=== PATIENT | male | born 1955 | race Caucasian/White ===

== ENCOUNTER 2019-01-15 05:47 | Inpatient (IN) | payer MEDICARE ==
[~2019-01-15] VITALS: Ht 185.4 cm; Wt 113.4 kg
[2019-01-15] VITALS (10 sets, daily range): BP systolic 102–123; BP diastolic 63–80
[2019-01-15] MEDS ORDERED: BACITRACIN 50,000 UNIT in IV NORMAL SALINE 1000ML BAG 1,000 ML IRR ONE (06:00)
[2019-01-15] MEDS ORDERED: fentaNYL PF VIAL 100 MCG/2 ML VIAL IV PRN ×2 (07:00→12:15)
[2019-01-15] MEDS ORDERED: ONDANSETRON PF 4 MG/2 ML VIAL. IV PRN ×2 (07:00→12:15)
[2019-01-15] MEDS ORDERED: PROCHLORPERAZINE 10 MG/2 ML VIAL. IV PRN (07:00)
[2019-01-15] MEDS ORDERED: IV RINGERS,LACTATED 1000ML 1,000 ML IV SCH (07:00)
[2019-01-15] MEDS ORDERED: HYDROmorphone 2 MG/ML VIAL IV PRN (07:00)
[2019-01-15] MEDS ORDERED: KETOROLAC 60 MG/2 ML VIAL. ONE (07:08)
[2019-01-15] MEDS ORDERED: GELATIN SPONGE SIZE 100. ONE (07:08)
[2019-01-15] MEDS ORDERED: THROMBIN TOPICAL 20,000 UNIT SPRAY.SYRN KIT TP ONE (07:09)
[2019-01-15] MEDS ORDERED: FURO-69 PO (07:18)
[2019-01-15] MEDS ORDERED: LOSA100T14 PO (07:18)
[2019-01-15] MEDS ORDERED: LACT1CAP8 PO (07:18)
[2019-01-15] MEDS ORDERED: POLY17PO29 PO (07:18)
[2019-01-15] MEDS ORDERED: TAMS0.4C97 PO (07:18)
[2019-01-15] MEDS ORDERED: GABA-585 PO (07:18)
[2019-01-15] MEDS ORDERED: PANT20TA2 PO (07:18)
[2019-01-15] MEDS ORDERED: NITR0.4T22 SL (07:18)
[2019-01-15] MEDS ORDERED: ASPI81TA50 PO (07:18)
[2019-01-15] MEDS ORDERED: LEFL10TA13 PO (07:18)
[2019-01-15] MEDS ORDERED: HYDR-2765 PO (07:18)
[2019-01-15] MEDS ORDERED: CALC625T PO (07:18)
[2019-01-15] MEDS ORDERED: SUMA100T3 PO (07:18)
[2019-01-15] MEDS ORDERED: MORP30TA83 PO (07:18)
[2019-01-15] MEDS ORDERED: LEVO88TA2 PO (07:18)
[2019-01-15] MEDS ORDERED: DIAZEPAM10 MG PO (07:18)
[2019-01-15] MEDS ORDERED: TRAZ-118 PO (07:18)
[2019-01-15] MEDS ORDERED: METO-269 PO (07:18)
[2019-01-15] MEDS ORDERED: PRED-220 PO (07:18)
[2019-01-15] MEDS ORDERED: IPRA3AMP29 NEB (07:18)
[2019-01-15] MEDS ORDERED: BUPIVACAINE-EPI 0.5%-1:200000 MPF 30 ML VIAL. INJ ONE (07:30)
[2019-01-15] MEDS ORDERED: IPRATRPIUM/ALBUTEROL 0.5/2.5MG 3 ML NEBU. NEB ONE (08:00)
[2019-01-15] MEDS ORDERED: MIDAZOLAM HCL/PF 2 MG/2 ML VIAL. ONE (08:14)
[2019-01-15] MEDS ORDERED: REMIFENTANIL 2 MG VIAL. IV ONE ×3 (08:14→13:29)
[2019-01-15] MEDS ORDERED: ROCURONIUM 50 MG/5 ML VIAL. ONE (08:14)
[2019-01-15] MEDS ORDERED: PROPOFOL 20 ML IV ONE ×3 (08:15→14:14)
[2019-01-15] MEDS ORDERED: PHENYLEPHRINE 10 MG/ML VIAL. ONE ×3 (08:15→13:42)
[2019-01-15] MEDS ORDERED: LIDOCAINE 2% PF 5 ML VIAL. ONE (08:15)
[2019-01-15] MEDS ORDERED: ONDANSETRON PF 4 MG/2 ML VIAL. ONE (08:15)
[2019-01-15] MEDS ORDERED: DEXAMETHASONE SOD PHOS 20 MG/5 ML VIAL. ONE (08:15)
[2019-01-15] MEDS ORDERED: KETOROLAC 30 MG/ML VIAL. ONE (08:15)
[2019-01-15] MEDS ORDERED: DESFLURANE > 120 MINUTES IH ONE ×2 (08:15→15:22)
[2019-01-15] MEDS ORDERED: PROPOFOL 50 ML IV ONE ×3 (08:15→11:32)
[2019-01-15] MEDS ORDERED: GLYCOPYRROLATE 1 MG/5 ML VIAL. ONE (08:19)
[2019-01-15] MEDS ORDERED: HYDROCORTISONE SOD SUCC/PF 100 MG/2 ML VIAL. ONE (08:29)
--- NOTE | 2019-01-15 08:33 | RAD ---
EXAM: CT lumbar spine without IV contrast CLINICAL HISTORY:LUMBAR STENOSIS, HERNIATED DISC, PSEUDOARTHROSIS Low back pain. COMPARISON: None available. TECHNIQUE: Helical CT was performed through the lumbar spine. Axial, coronal and sagittal reformatted images were generated. PQRS compliance statement - One or more of the following individualized dose reduction techniques were utilized for this study: 1. Automated exposure control 2. Adjustment of the mA and/or kV according to patient size 3. Use of iterative reconstruction technique FINDINGS: Postoperative changes of L3-4 laminectomy with L3-L5 posterior lateral fusion changes are seen with paired pedicle screws. Of note, the bilateral L3 and L4 pedicle screws appear to extend partially beyond the lateral margin of the respective pedicles. In addition partial resection of the inferior L2 spinous process is seen. Otherwise, no definite hardware complication. No evidence for acute fracture. Leftward curvature of the lumbar spine, apex L2-3. Trace anterolisthesis of L4 on L5. There is severe L2-3 disc height loss. Intervertebral disc heights are otherwise grossly preserved. T12-L1: No significant central canal stenosis or neural foraminal narrowing. L1-L2: No significant central canal stenosis or neural foraminal narrowing. L2-L3: Large calcified posterior disc osteophyte complex is seen extending inferiorly approximately 2 cm caudal along the posterior L3 vertebral body. In addition there is ligamentum flavum hypertrophy, facet degenerative changes resulting in moderate to severe central canal stenosis with thecal sac measuring 7-8 mm in AP dimension, with lateral recess narrowing and likely severe bilateral neural foraminal narrowing (right greater than left). L3-L4: Generalized disc bulge with facet degenerative changes results in moderate bilateral neural foraminal narrowing and mild bilateral lateral recess narrowing. L4-L5: Generalized disc bulge, trace anterolisthesis of L4 on L5, with laminectomy change and facet degenerative changes results in no significant central canal stenosis, although there is mild bilateral neural foraminal narrowing. L5-S1: Shallow right paracentral-foraminal disc protrusion with ligamentum flavum hypertrophy and calcification results in mild central canal stenosis, mild right neural foraminal narrowing and moderate right lateral recess stenosis. IMPRESSION: 1. Multilevel degenerative changes as described in detail above, most prominent at L2-3 with calcified disc extrusion extending approximately 2 cm caudal along the posterior wall L3 vertebral body with resultant neural foraminal and lateral recess narrowing. 2. L3-L5 posterior spinal fusion hardware as described in detail above. Trace anterolisthesis of L4 on L5. Electronically signed by: Jorge Parish MD (01/15/2019 8:31 AM) [facility]
--- NOTE | 2019-01-15 08:53 | HP ---
ADMIT DATE: 01/15/[address] Leong. DATE OF SURGERY: 01/15/2019. HISTORY OF PRESENT ILLNESS: The patient is a pleasant 63-year-old who has difficulty with low back pain and bilateral hip and thigh and leg pain. This problem has been present for years, but has been significant since late 2018. He rates his pain as an 8/10. He says that the left leg is about 70% of the problem and right leg is about 30%. He is unable to sleep at night. Walking and standing increases discomfort. Lying in certain positions helps him. He is taking [place], Valium and morphine to help with the problem. He has been to physical therapy 3 times per week without significant benefit. Epidural steroid injections have been done, which gave him short-term improvement. PAST MEDICAL HISTORY: Arthritis, asthma, gout, chest pain, pacemaker, headaches, rheumatoid arthritis, shingles, thyroid disease, sepsis, wound infection. PAST SURGICAL HISTORY: Sinus surgery, elbow surgery, cervical surgery, lumbar surgery, wrist surgery, abdominal surgery. FAMILY HISTORY: Bleeding problems, cancer, diabetes, heart disease, hypertension, [place], headache, spine problems. SOCIAL HISTORY: Retired. . Does not smoke. ALLERGIES: TO LATEX. CURRENT MEDICATIONS: [place], Valium, morphine, Protonix, Flomax, diazepam, trazodone, prednisone, Synthroid, metoprolol, albuterol, losartan, nitroglycerin, Imitrex, hydrochlorothiazide, gabapentin, aspirin, MiraLax, FiberCon, gemfibrozil. REVIEW OF SYSTEMS: A 12-point review of systems was obtained and is noncontributory except for that mentioned above. PHYSICAL EXAMINATION: NEUROSURGERY EXAMINATION: GENERAL APPEARANCE: Alert, pleasant, no acute distress. HEAD: Normocephalic and atraumatic. SKIN: Warm and dry. MUSCULOSKELETAL: Lumbar paraspinal muscle bulk is normal, restricted range of motion of the lumbar spine, ioll-nf-[id number] tenderness of the lower lumbar spine with palpation, normal range of motion of the lower extremities bilaterally. EXTREMITIES: No clubbing, cyanosis or edema. NEUROLOGIC: Alert and oriented x 3, normal recent and remote memory, strength 5/5 in bilateral lower extremities, sensory was intact to light touch in bilateral lower extremities, reflexes are trace and symmetric in lower extremities bilaterally except for subjective decrease in light touch involving his left anterior thigh and leg. Negative straight leg raising bilaterally. He uses a roller walker for help with ambulation. IMAGING: Reviewed. I reviewed a lumbar MRI scan and CT scan. He has an instrumented fusion, which extends from L3 to L5. On the CT portion, it looks as though there may be a nonunion at L3-L4. At L2-L3, there is a large central disk extrusion/herniation, which is associated with severe lumbar spinal stenosis. ASSESSMENT: 1. Intervertebral disk disorders with radiculopathy, lumbar region. 2. Spinal stenosis, lumbar region with neurogenic claudication. 3. Pseudoarthrosis ____ fusion or arthrodesis. 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 I would recommend surgery with removal of hardware of L3-L5, augmentation of his fusion, L3-L4 and a laminectomy and diskectomy at L2-L3. I would replace his hardware with L3-5. I do think that this type of approach would offer him some relief. I discussed with him the surgery and the risks involved as well as expected postoperative course. He understands. He would like to go ahead. We will make the arrangements. ROBERTA LEONG MD DR: BRANDI/amelia JOB#: [id number] / [id number]
[2019-01-15] MEDS ORDERED: SCOPOLAMINE 1.5MG PATCH. TD SCH (09:00)
[2019-01-15] MEDS ORDERED: fentaNYL PF VIAL 100 MCG/2 ML VIAL ONE ×2 (11:23→16:28)
[2019-01-15] MEDS ORDERED: SUMAtriptan SUCCINATE 100 MG TABLET PO PRN (12:00)
[2019-01-15] MEDS ORDERED: 0.9 % SODIUM CHLORIDE 10 ML DISP.SYRIN. IV PRN (12:15)
[2019-01-15] MEDS ORDERED: NALOXONE 0.4 MG/ML VIAL. IV PRN ×2 (12:15)
[2019-01-15] MEDS ORDERED: MAG HYDROX/ALUMINUM HYD/SIMETH 30 ML ORAL.SUSP PO PRN (12:15)
[2019-01-15] MEDS ORDERED: MAGNESIUM HYDROXIDE 2,400 MG/30 ML ORAL.SUSP. PO PRN (12:15)
[2019-01-15] MEDS ORDERED: HYDROcodone/APAP 10/325 1 TAB TABLET PO PRN (12:15)
[2019-01-15] MEDS ORDERED: CALCIUM CARBONATE 500 MG TAB.CHEW PO PRN (12:15)
[2019-01-15] MEDS ORDERED: diphenhydrAMINE HCL 25 MG CAPSULE PO PRN (12:15)
[2019-01-15] MEDS ORDERED: ACETAMINOPHEN 325 MG TABLET. PO PRN (12:15)
[2019-01-15] MEDS ORDERED: NEOSTIGMINE METHYLSULFATE 5 MG/5 ML SYRINGE. ONE (13:10)
[2019-01-15] MEDS ORDERED: ceFAZolin SODIUM 1 GM VIAL ONE ×2 (13:22)
[2019-01-15] MEDS ORDERED: 0.9 % SODIUM CHLORIDE 20 ML VIAL. IJ ONE ×2 (13:23)
[2019-01-15] MEDS ORDERED: IPRATRPIUM/ALBUTEROL 0.5/2.5MG 3 ML NEBU. NEB SCH (16:00)
[2019-01-15] MEDS: fentaNYL PF VIAL 100 MCG/2 ML VIAL IV PRN ×4 (16:17→16:36)
[2019-01-15] MEDS: MORPHINE SULFATE 2 MG/ML VIAL. IV PRN ×2 (16:18→16:27)
[2019-01-15] MEDS: POTASSIUM CL 20MEQ D5-0.45NACL 1,000 ML IV SCH (17:27)
[2019-01-15] MEDS: MORPHINE ER 30 MG TABLET.ER PO SCH ×2 (17:27→21:23)
[2019-01-15] MEDS: HYDROcodone/APAP 10/325 1 TAB TABLET PO PRN (19:09)
[2019-01-15] MEDS: ceFAZolin SODIUM IV Push 1 GM VIAL. IVP SCH (21:16)
[2019-01-15] MEDS: traZODone 50 MG TABLET. PO SCH (21:17)
[2019-01-15] MEDS: DOCUSATE SODIUM 100 MG CAPSULE. PO SCH (21:17)
[2019-01-15] MEDS: diazePAM 5 MG TABLET PO SCH (21:23)
[2019-01-16] VITALS (8 sets, daily range): BP systolic 86–144; BP diastolic 40–86
[2019-01-16] MEDS: POTASSIUM CL 20MEQ D5-0.45NACL 1,000 ML IV SCH ×2 (01:22→14:42)
[2019-01-16] MEDS: ceFAZolin SODIUM IV Push 1 GM VIAL. IVP SCH ×2 (05:06→13:27)
[2019-01-16] MEDS: LEVOTHYROXINE 88 MCG TABLET PO SCH (06:32)
[2019-01-16] MEDS: PANTOPRAZOLE 40 MG TABLET.DR. PO SCH (06:58)
--- NOTE | 2019-01-16 08:00 | NUR ---
ready to sit up. transferred from bed to chair with help of 2. ambulates to the bathroom and voids a large amount; some hesitancy. dressing to back incision is saturated. cleansed with chlor prep Telfa then abd x2 applied. sits up in chair with ice to his back. continues to have numbness in his left leg.
[2019-01-16] MEDS: POLYETHYLENE GLYCOL 3350 17 GM PACKET. PO SCH (08:27)
[2019-01-16] MEDS: METHOCARBAMOL 750 MG TABLET PO PRN ×2 (08:28→15:07)
[2019-01-16] MEDS: CALCIUM POLYCARBOPHIL 625 MG TABLET PO SCH (08:28)
[2019-01-16] MEDS: TAMSULOSIN 0.4 MG CAP.ER.24H. PO SCH (08:28)
[2019-01-16] MEDS: MORPHINE ER 30 MG TABLET.ER PO SCH ×3 (08:28→21:02)
[2019-01-16] MEDS: predniSONE 10 MG TABLET PO SCH (08:28)
[2019-01-16] MEDS: DOCUSATE SODIUM 100 MG CAPSULE. PO SCH ×2 (08:29→21:01)
[2019-01-16] MEDS: HYDROcodone/APAP 10/325 1 TAB TABLET PO PRN ×2 (08:29→12:20)
[2019-01-16] MEDS: ASPIRIN ENTERIC COATED 81 MG TABLET.DR. PO SCH (08:29)
[2019-01-16] MEDS: FUROSEMIDE 20 MG TABLET PO SCH (08:29)
[2019-01-16] MEDS: LACTOBACILLUS RHAMNOSUS GG 1 CAPSULE. PO SCH (08:29)
[2019-01-16] MEDS: LEFLUNOMIDE 10 MG TABLET. PO SCH (09:00)
--- NOTE | 2019-01-16 10:55 | PDOC ---
PROGRESS NOTES Subjective Subjective POD #1 ambulated with PT back/ incisional pain controlled with medication Objective Objective Vital Signs Date Time Temp Pulse Resp B/P (MAP) Pulse Ox O2 Delivery O2 Flow Rate FiO2 01/16/19 09:04 75 20 86/40 (55) Room Air 01/16/19 06:26 98.0 96 2.0 98.0 Intake and Output 01/16/19 06:59 Intake Total 1750 ml Output Total 1000 ml Balance 750 ml Intake Oral 450 ml IV Total 1300 ml Output Urine Total 850 ml Estimated Blood Loss 150 ml # Voids 1 Physical Exam General: Alert, Oriented X3, Cooperative MUSCULOSKELETAL: Other (KENNY) Neuro: Normal speech Skin: Other (dressing intact, some bloody drainage) Plan Plan of Care encouraged increased activity as tolerated PT brace likely dc tomorrow Comment Review of Relevant I have reviewed the following items asia (where applicable) has been applied. Medications Current Medications Ondansetron HCl (Zofran) 4 mg PRN Q6HRS PRN IV NAUSEA/VOMITING; Start 01/15/19 at 07:00; Stop 01/15/19 at 19:00; Status DC Fentanyl Citrate (Fentanyl 2ml Vial) 25 mcg PRN Q5MIN PRN IV MILD PAIN 1-3; Start 01/15/19 at 07:00; Stop 01/15/19 at 19:00; Status DC Fentanyl Citrate (Fentanyl 2ml Vial) 50 mcg PRN Q5MIN PRN IV MODERATE TO SEVERE PAIN Last administered on 01/15/19at 16:36; Start 01/15/19 at 07:00; Stop 01/15/19 at 19:00; Status DC Morphine Sulfate (Morphine Sulfate) 1 mg PRN Q10MIN PRN IV SEVERE PAIN 7-10 Last administered on 01/15/19at 16:30; Start 01/15/19 at 07:00; Stop 01/15/19 at 19:00; Status DC Ringer's Solution 1,000 ml @ 30 mls/hr Q24H IV Last administered on 01/15/19at 07:05; Start 01/15/19 at 07:00; Stop 01/15/19 at 18:59; Status DC Hydromorphone HCl (Dilaudid) 0.5 mg PRN Q10MIN PRN IV SEV PAIN, Second choice; Start 01/15/19 at 07:00; Stop 01/15/19 at 19:00; Status DC Prochlorperazine Edisylate (Compazine) 5 mg PACU PRN PRN IV NAUSEA, MRX1; Start 01/15/19 at 07:00; Stop 01/15/19 at 19:00; Status DC Bacitracin 24354 unit/Sodium Chloride 1,000 ml @ 1,000 mls/hr 1X ONCE IRR Last administered on 01/15/19at 11:15; Start 01/15/19 at 06:00; Stop 01/15/19 at 06:59; Status DC Cefazolin Sodium/ Dextrose 50 ml @ 100 mls/hr 1X PREOP PRN IV PRIOR TO PROCEDURE Last administered on 01/15/19at 14:21; Start 01/15/19 at 06:00; Stop 01/15/19 at 18:00; Status DC Scopolamine (Transderm-Scop) 1 patch Q3DAYS TD Last administered on 01/15/19at 07:31; Start 01/15/19 at 09:00 Gelatin (Gelfoam Size 100) 1 each STK-MED ONCE .ROUTE Last administered on 01/15/19at 11:15; Start 01/15/19 at 07:08; Stop 01/15/19 at 07:09; Status DC Ketorolac Tromethamine (Toradol Im) 60 mg STK-MED ONCE .ROUTE Last administered on 01/15/19 11:15; Start 01/15/19 at 07:08; Stop 01/15/19 at 07:09; Status DC Thrombin 20,000 unit STK-MED ONCE TP Last administered on 01/15/19at 11:15; Start 01/15/19 at 07:09; Stop 01/15/19 at 07:09; Status DC Bupivacaine HCl/ Epinephrine Bitart (Sensorcain-Epi 0.5%-1:047010 Mpf) 30 ml 1X ONCE INJ Last administered on 01/15/19at 15:30; Start 01/15/19 at 07:30; Stop 01/15/19 at 07:31; Status DC Albuterol/ Ipratropium (Duoneb) 3 ml 1X ONCE NEB Last administered on 01/15/19at 08:00; Start 01/15/19 at 08:00; Stop 01/15/19 at 08:19; Status DC Rocuronium [place] (Zemuron) 50 mg STK-MED ONCE .ROUTE ; Start 01/15/19 at 08:14; Stop 01/15/19 at 08:14; Status DC Midazolam HCl (Versed) 2 mg STK-MED ONCE .ROUTE ; Start 01/15/19 at 08:14; Stop 01/15/19 at 08:14; Status DC Remifentanil HCl (Ultiva) 2 mg STK-MED ONCE IV ; Start 01/15/19 at 08:14; Stop 01/15/19 at 08:15; Status DC Desflurane (Suprane) 90 ml STK-MED ONCE IH ; Start 01/15/19 at 08:15; Stop 01/15/19 at 08:15; Status DC Propofol 20 ml @ As Directed STK-MED ONCE IV ; Start 01/15/19 at 08:15; Stop 01/15/19 at 08:15; Status DC Propofol 50 ml @ As Directed STK-MED ONCE IV ; Start 01/15/19 at 08:15; Stop 01/15/19 at 08:15; Status DC Lidocaine HCl (Lidocaine Pf 2% Vial) 5 ml STK-MED ONCE .ROUTE ; Start 01/15/19 at 08:15; Stop 01/15/19 at 08:15; Status DC Ondansetron HCl (Zofran) 4 mg STK-MED ONCE .ROUTE ; Start 01/15/19 at 08:15; Stop 01/15/19 at 08:16; Status DC Ketorolac Tromethamine (Toradol 30mg Vial) 30 mg STK-MED ONCE .ROUTE ; Start 01/15/19 at 08:15; Stop 01/15/19 at 08:16; Status DC Phenylephrine HCl (Bj-Synephrine Inj) 10 mg STK-MED ONCE .ROUTE ; Start 01/15/19 at 08:15; Stop 01/15/19 at 08:16; Status DC Dexamethasone Sodium Phosphate (Decadron) 20 mg STK-MED ONCE .ROUTE ; Start 01/15/19 at 08:15; Stop 01/15/19 at 08:16; Status DC Glycopyrrolate (Robinul) 1 mg STK-MED ONCE .ROUTE ; Start 01/15/19 at 08:19; Stop 01/15/19 at 08:19; Status DC Hydrocortisone Sodium Succinate (Solu-CORTEF) 100 mg STK-MED ONCE .ROUTE ; Start 01/15/19 at 08:29; Stop 01/15/19 at 08:30; Status DC Propofol 50 ml @ As Directed STK-MED ONCE IV ; Start 01/15/19 at 10:17; Stop 01/15/19 at 10:17; Status DC Phenylephrine HCl (Bj-Synephrine Inj) 10 mg STK-MED ONCE .ROUTE ; Start 01/15/19 at 10:57; Stop 01/15/19 at 10:57; Status DC Remifentanil HCl (Ultiva) 2 mg STK-MED ONCE IV ; Start 01/15/19 at 11:10; Stop 01/15/19 at 11:11; Status DC Fentanyl Citrate (Fentanyl 2ml Vial) 100 mcg STK-MED ONCE .ROUTE ; Start 01/15/19 at 11:23; Stop 01/15/19 at 11:23; Status DC Propofol 50 ml @ As Directed STK-MED ONCE IV ; Start 01/15/19 at 11:32; Stop 01/15/19 at 11:32; Status DC Aspirin (Ecotrin) 81 mg DAILY PO Last administered on 01/16/19at 08:33; Start 01/16/19 at 09:00 Calcium Polycarbophil (Fibercon) 625 mg DAILY PO Last administered on 01/16/19at 08:33; Start 01/16/19 at 09:00 Furosemide (Lasix) 20 mg DAILY PO Last administered on 01/16/19at 08:33; Start 01/16/19 at 09:00 Albuterol/ Ipratropium (Duoneb) 3 ml RTQID NEB ; Start 01/15/19 at 16:00 Leflunomide (Arava) 20 mg DAILY PO ; Start 01/16/19 at 09:00 Levothyroxine Sodium (Synthroid) 88 mcg DAILY06 PO Last administered on 01/16/19at 06:32; Start 01/16/19 at 06:00 Morphine Sulfate (Ms Contin) 30 mg TID PO Last administered on 01/16/19at 08:33; Start 01/15/19 at 14:00 Polyethylene Glycol (miraLAX PACKET) 17 gm DAILY PO Last administered on 01/16/19at 08:33; Start 01/16/19 at 09:00 Prednisone (Prednisone) 10 mg DAILY PO Last administered on 01/16/19at 08:33; Start 01/16/19 at 09:00 Sumatriptan Succinate (Imitrex) 150 mg PRN 1X PRN PO MIGRAINE HEADACHE Last administered on 01/16/19at 10:02; Start 01/15/19 at 12:00 Tamsulosin HCl (Flomax) 0.4 mg DAILY PO Last administered on 01/16/19at 08:33; Start 01/16/19 at 09:00 Trazodone HCl (Desyrel) 75 mg HS PO Last administered on 01/15/19at 21:19; Start 01/15/19 at 21:00 Diazepam (Valium) 10 mg QHS PO Last administered on 01/15/19at 21:24; Start 01/15/19 at 21:00 Lactobacillus Rhamnosus (Culturelle) 1 cap DAILY PO Last administered on 01/16/19at 08:33; Start 01/16/19 at 09:00 Losartan Potassium (Cozaar) 100 mg DAILY PO ; Start 01/16/19 at 09:00 Metoprolol Succinate (Toprol Xl) 50 mg DAILY PO ; Start 01/16/19 at 09:00 Pantoprazole Sodium (Protonix) 40 mg DAILYAC PO Last administered on 01/16/19at 06:59; Start 01/16/19 at 07:30 Fentanyl Citrate (Fentanyl 2ml Vial) 50 mcg PRN Q2HR PRN IV SEVERE PAIN; Start 01/15/19 at 12:15 Acetaminophen (Tylenol) 650 mg PRN Q6HRS PRN PO MILD PAIN / TEMP; Start 01/15/19 at 12:15 Al Hydroxide/Mg Hydroxide (Mylanta Plus Xs) 30 ml PRN Q3HRS PRN PO HEARTBURN / GAS; Start 01/15/19 at 12:15 Calcium Carbonate/ Glycine (Tums) 500 mg PRN Q3HRS PRN PO INDIGESTION; Start 01/15/19 at 12:15 Diphenhydramine HCl (Benadryl) 25 mg PRN Q6HRS PRN PO ITCHING; Start 01/15/19 at 12:15 Naloxone HCl (Narcan) 0.1 mg PRN Q2MIN PRN IV ADMIN; Start 01/15/19 at 12:15 Sodium Chloride (Normal Saline Flush) 3 ml QSHIFT PRN IV AFTER MEDS AND BLOOD DRAWS; Start 01/15/19 at 12:15 Potassium Chloride/Dextrose/ Sod Cl 1,000 ml @ 75 mls/hr [id number] IV Last administered on 01/15/19at 17:28; Start 01/15/19 at 12:02 Naloxone HCl (Narcan) 0.4 mg PRN Q2MIN PRN IV SEE INSTRUCTIONS; Start 01/15/19 at 12:15 Methocarbamol (Robaxin) 750 mg PRN TID PRN PO MUSCLE SPASMS Last administered on 01/16/19at 08:33; Start 01/15/19 at 12:15 Docusate Sodium (Colace) 100 mg BID PO Last administered on 01/16/19at 08:33; Start 01/15/19 at 21:00 Magnesium Hydroxide (Milk Of Magnesia) 2,400 mg PRN Q12HR PRN PO CONSTIPATION; Start 01/15/19 at 12:15 Ondansetron HCl (Zofran) 4 mg PRN Q6HRS PRN IV NAUESA, 1ST CHOICE; Start 01/15/19 at 12:15 Cefazolin Sodium (Ancef) 1 gm Q8H IVP Last administered on 01/16/19at 05:07; Start 01/15/19 at 21:00; Stop 01/16/19 at 13:01 Acetaminophen/ Hydrocodone Bitart (Lortab 10/325) 1 tab PRN Q6HRS PRN PO MODERATE PAIN Last administered on 01/16/19at 08:33; Start 01/15/19 at 12:15 Acetaminophen/ Hydrocodone Bitart (Lortab 10/325) 2 tab PRN Q6HRS PRN PO SEVERE PAIN; Start 01/15/19 at 12:15 Neostigmine Methylsulfate (Neostigmine Methylsulfate) 5 mg STK-MED ONCE .ROUTE ; Start 01/15/19 at 13:10; Stop 01/15/19 at 13:10; Status DC Cefazolin Sodium (Ancef) 1 gm STK-MED ONCE .ROUTE ; Start 01/15/19 at 13:22; Stop 01/15/19 at 13:23; Status DC Cefazolin Sodium (Ancef) 1 gm STK-MED ONCE .ROUTE ; Start 01/15/19 at 13:22; Stop 01/15/19 at 13:23; Status DC Sodium Chloride (SODIUM CHLORIDE 20ml) 20 ml STK-MED ONCE IJ ; Start 01/15/19 at 13:23; Stop 01/15/19 at 13:23; Status DC Sodium Chloride (SODIUM CHLORIDE 20ml) 20 ml STK-MED ONCE IJ ; Start 01/15/19 at 13:23; Stop 01/15/19 at 13:23; Status DC Remifentanil HCl (Ultiva) 2 mg STK-MED ONCE IV ; Start 01/15/19 at 13:29; Stop 01/15/19 at 13:29; Status DC Phenylephrine HCl (Bj-Synephrine Inj) 10 mg STK-MED ONCE .ROUTE ; Start 01/15/19 at 13:42; Stop 01/15/19 at 13:42; Status DC Propofol 20 ml @ As Directed STK-MED ONCE IV ; Start 01/15/19 at 14:14; Stop 01/15/19 at 14:14; Status DC Propofol 20 ml @ As Directed STK-MED ONCE IV ; Start 01/15/19 at 14:14; Stop 01/15/19 at 14:15; Status DC Desflurane (Suprane) 90 ml STK-MED ONCE IH ; Start 01/15/19 at 15:22; Stop 01/15/19 at 15:22; Status DC Fentanyl Citrate (Fentanyl 2ml Vial) 100 mcg STK-MED ONCE .ROUTE ; Start 01/15/19 at 16:28; Stop 01/15/19 at 16:28; Status DC Guaifenesin (MUCINEX ER with DM) 1 tab BID PO ; Start 01/16/19 at 21:00 Active Scripts Active Reported Ms Contin (Morphine Sulfate) 30 Mg Tablet.er 1 Tab PO TID Probiotic (Lactobacillus Combo No.11) 1 Each Cap.sprink 1 Each PO DAILY Fibercon (Calcium Polycarbophil) 625 Mg Tablet 625 Mg PO DAILY Miralax (Polyethylene Glycol 3350) 17 Gm Powd.pack 1 Packet PO DAILY Aspir-Low (Aspirin) 81 Mg Tablet.dr 1 Tab PO DAILY Hydrocodone-Apap 7.5-325 (Hydrocodone Bit/Acetaminophen) 1 Tab Tablet 1 Tab PO PRN Q6HRS PRN Lasix (Furosemide) 20 Mg Tablet 1 Tab PO DAILY Imitrex (Sumatriptan Succinate) 100 Mg Tablet 150 Mg PO ONCE PRN NITROGLYCERIN SubLingual (Nitroglycerin) 0.4 Mg Tab.subl 1 Tab SL UD Losartan Potassium 100 Mg Tablet 100 Mg PO DAILY Leflunomide 20 Mg Tablet 20 Mg PO DAILY Duoneb 0.5-3(2.5) Mg/3 Ml (Albuterol/Ipratropium) 3 Ml Ampul.neb 3 Ml NEB QID Toprol Xl (Metoprolol Succinate) 50 Mg Tab.er.24h 50 Mg PO DAILY Synthroid (Levothyroxine Sodium) 88 Mcg Tablet 1 Tab PO DAILY Prednisone (Prednisone) 10 Mg Tablet 10 Mg PO DAILY Trazodone Hcl 50 Mg Tablet 75 Mg PO HS Diazepam 10 Mg Tablet 10 Mg PO HS Flomax (Tamsulosin Hcl) 0.4 Mg Cap.er.24h 1 Cap PO DAILY Protonix (Pantoprazole Sodium) 20 Mg Tablet.dr 1 Tab PO DAILY Vitals/I & O Vital Sign - Last 24 Hours 01/15/19 01/15/19 01/15/19 01/15/19 15:58 15:58 16:13 16:18 Temp 99.1 99.1 Pulse 80 78 Resp 17 15 15 B/P (MAP) 113/63 108/69 Pulse Ox 98 93 99 O2 Delivery Mask Simple Mask Room Air Simple Mask O2 Flow Rate 10 10 10.0 01/15/19 01/15/19 01/15/19 01/15/19 16:18 16:23 16:25 16:30 Pulse 82 Resp 16 14 13 14 B/P (MAP) 110/69 Pulse Ox 94 94 95 O2 Delivery Simple Mask Nasal Cannula Nasal Cannula Nasal Cannula O2 Flow Rate 10.0 2.0 2 2.0 01/15/19 01/15/19 01/15/19 01/15/19 16:30 16:36 16:36 17:00 Temp 97.8 97.6 97.8 97.6 Pulse 80 73 Resp 16 13 16 16 B/P (MAP) 140/69 107/72 (84) Pulse Ox 96 95 95 94 O2 Delivery Nasal Cannula Nasal Cannula Nasal Cannula Nasal Cannula O2 Flow Rate 2.0 2.0 2.0 01/15/19 01/15/19 01/15/19 9/16/19 17:11 17:15 17:21 17:21 Temp 97.6 97.6 Pulse 80 Resp 16 B/P (MAP) 110/63 (79) Pulse Ox 94 94 94 O2 Delivery Nasal Cannula Nasal Cannula Nasal Cannula Nasal Cannula O2 Flow Rate 2.0 2.0 2.0 2.0 01/15/19 01/15/19 01/15/19 01/15/19 17:21 17:21 17:21 17:28 Pulse Ox 94 94 94 94 O2 Delivery Nasal Cannula Nasal Cannula Nasal Cannula Nasal Cannula O2 Flow Rate 2.0 2.0 2.0 2.0 01/15/19 01/15/19 01/15/19 01/15/19 17:30 17:45 18:00 18:31 Temp 97.6 97.6 97.6 97.6 97.6 97.6 97.6 97.6 Pulse 80 88 75 78 Resp 16 16 16 16 B/P (MAP) 111/74 (86) 116/71 (86) 113/71 (85) 102/67 (79) Pulse Ox 94 96 96 96 O2 Delivery Nasal Cannula Nasal Cannula Nasal Cannula Nasal Cannula O2 Flow Rate 2.0 2.0 2.0 2.0 01/15/19 01/15/19 01/15/19 01/15/19 19:00 19:10 20:00 20:00 Pulse 71 80 Resp 18 16 18 B/P (MAP) 114/63 (80) 112/73 (86) Pulse Ox 96 95 98 O2 Delivery Nasal Cannula Nasal Cannula Nasal Cannula Nasal Cannula O2 Flow Rate 2.0 2.0 2.0 2.0 01/15/19 01/15/19 01/15/19 01/15/19 21:15 21:24 21:56 21:56 Temp 97.6 97.6 Pulse 85 Resp 20 18 18 18 B/P (MAP) 123/73 (90) Pulse Ox 99 96 97 97 O2 Delivery Nasal Cannula Nasal Cannula Nasal Cannula Nasal Cannula O2 Flow Rate 2.0 2.0 2.0 2.0 01/15/19 01/16/19 01/16/19 01/16/19 23:00 03:15 03:47 06:26 Temp 97.7 98.0 98.0 97.7 98.0 98.0 Pulse 95 98 95 Resp 19 20 18 18 B/P (MAP) 120/80 (93) 130/82 (98) 113/62 (79) Pulse Ox 96 97 96 O2 Delivery Nasal Cannula Nasal Cannula Nasal Cannula Nasal Cannula O2 Flow Rate 2.0 2.0 2.0 2.0 01/16/19 01/16/19 01/16/19 01/16/19 08:00 08:33 08:33 09:04 Pulse 94 75 Resp 20 20 20 B/P (MAP) 110/70 (83) 86/40 (55) O2 Delivery Room Air Room Air Room Air Intake and Output 01/15/19 01/15/19 01/16/19 14:59 22:59 06:59 Intake Total 1450 ml 300 ml Output Total 650 ml 350 ml Balance 800 ml -50 ml ROBERTA LEONG MD Jan 16, 2019 10:55
[2019-01-16] MEDS: METOPROLOL SUCC 24HR ER 50 MG TAB.ER.24H. PO SCH (12:21)
[2019-01-16] MEDS: LOSARTAN POTASSIUM 50 MG TABLET. PO SCH (15:09)
[2019-01-16] MEDS: traZODone 50 MG TABLET. PO SCH (21:02)
[2019-01-16] MEDS: diazePAM 5 MG TABLET PO SCH (21:02)
[2019-01-16] MEDS: guaiFENesin DM 600/30MG 1 TAB TAB.ER.12H PO SCH (21:43)
[2019-01-17 02:30] VITALS: BP 140/86
[2019-01-17 05:33] VITALS: BP 97/49
[2019-01-17] MEDS: PANTOPRAZOLE 40 MG TABLET.DR. PO SCH (06:01)
[2019-01-17] MEDS: LEVOTHYROXINE 88 MCG TABLET PO SCH (06:01)
[2019-01-17] MEDS ORDERED: HYDR-2769 PO (07:52)
[2019-01-17] MEDS ORDERED: METH750T2 PO (07:52)
--- NOTE | 2019-01-17 07:54 | DISCH ---
DISCHARGE INSTRUCTIONS Condition on Discharge Condition on Discharge: Stable Activity After Discharge Activity Instructions for Disc: Activity as tolerated, Avoid exertion Bathing Instructions: Shower-keep dressing dry Lifting Instructions after Dis: No heavy lifting, No pulling or pushing, Do not lift >10 pounds Driving Instructions after Dis: No driving for 2 weeks Diet after Discharge Additional Diet Restrictions: resume home diet Wound Incision Care Wound/Incision Care: Ice to area for comfort Other wound/incision instructi: may remove dressing when dry, no soaking Wound Care Equipment: Dressings Contacting the [facility] after DC Call your doctor for: Concerns you may have Follow-Up Follow up with: Dr. Marquez's nurse in 2 weeks [phone] Treatment/Equipment after DC Adaptive Equipment Issued: Front wheeled ROBERTA Madrid MD Jan 17, 2019 07:54
[2019-01-17] MEDS: POLYETHYLENE GLYCOL 3350 17 GM PACKET. PO SCH (08:06)
[2019-01-17] MEDS: guaiFENesin DM 600/30MG 1 TAB TAB.ER.12H PO SCH (08:08)
[2019-01-17] MEDS: CALCIUM POLYCARBOPHIL 625 MG TABLET PO SCH (08:08)
[2019-01-17] MEDS: FUROSEMIDE 20 MG TABLET PO SCH (08:08)
[2019-01-17] MEDS: predniSONE 10 MG TABLET PO SCH (08:08)
[2019-01-17] MEDS: LACTOBACILLUS RHAMNOSUS GG 1 CAPSULE. PO SCH (08:08)
[2019-01-17] MEDS: MORPHINE ER 30 MG TABLET.ER PO SCH ×2 (08:08→13:25)
[2019-01-17] MEDS: DOCUSATE SODIUM 100 MG CAPSULE. PO SCH (08:09)
[2019-01-17] MEDS: TAMSULOSIN 0.4 MG CAP.ER.24H. PO SCH (08:09)
[2019-01-17] MEDS: ASPIRIN ENTERIC COATED 81 MG TABLET.DR. PO SCH (08:09)
[2019-01-17] MEDS: METHOCARBAMOL 750 MG TABLET PO PRN ×2 (08:12→13:25)
[2019-01-17 08:13] VITALS: BP 99/64
[2019-01-17] MEDS: LOSARTAN POTASSIUM 50 MG TABLET. PO SCH (09:00)
[2019-01-17] MEDS: LEFLUNOMIDE 10 MG TABLET. PO SCH (09:00)
--- NOTE | 2019-01-17 09:32 | PDOC ---
PROGRESS NOTES Subjective Subjective POD #2 up ambulating in gutiérrez with walker right leg pain resolved, some left leg pain Objective Objective Vital Signs Date Time Temp Pulse Resp B/P (MAP) Pulse Ox O2 Delivery O2 Flow Rate FiO2 01/17/19 08:13 86 20 99/64 (76) 01/17/19 07:14 Room Air 01/17/19 05:33 97.6 96 97.6 01/16/19 06:26 2.0 Intake and Output 01/17/19 07:00 Intake Total 6080 ml Balance 6080 ml Intake Oral 6080 ml # Voids 6 Physical Exam General: Alert, Oriented X3, Cooperative, No acute distress MUSCULOSKELETAL: Other (KENNY) Neuro: Normal speech Skin: Other (dressing dry and intact) Plan Plan of Care may dc home today f/u 2 weeks Comment Review of Relevant I have reviewed the following items asia (where applicable) has been applied. Medications Current Medications Ondansetron HCl (Zofran) 4 mg PRN Q6HRS PRN IV NAUSEA/VOMITING; Start 01/15/19 at 07:00; Stop 01/15/19 at 19:00; Status DC Fentanyl Citrate (Fentanyl 2ml Vial) 25 mcg PRN Q5MIN PRN IV MILD PAIN 1-3; Start 01/15/19 at 07:00; Stop 01/15/19 at 19:00; Status DC Fentanyl Citrate (Fentanyl 2ml Vial) 50 mcg PRN Q5MIN PRN IV MODERATE TO SEVERE PAIN Last administered on 01/15/19at 16:36; Start 01/15/19 at 07:00; Stop 01/15/19 at 19:00; Status DC Morphine Sulfate (Morphine Sulfate) 1 mg PRN Q10MIN PRN IV SEVERE PAIN 7-10 Last administered on 01/15/19at 16:30; Start 01/15/19 at 07:00; Stop 01/15/19 at 19:00; Status DC Ringer's Solution 1,000 ml @ 30 mls/hr Q24H IV Last administered on 01/15/19at 07:05; Start 01/15/19 at 07:00; Stop 01/15/19 at 18:59; Status DC Hydromorphone HCl (Dilaudid) 0.5 mg PRN Q10MIN PRN IV SEV PAIN, Second choice; Start 01/15/19 at 07:00; Stop 01/15/19 at 19:00; Status DC Prochlorperazine Edisylate (Compazine) 5 mg PACU PRN PRN IV NAUSEA, MRX1; Start 01/15/19 at 07:00; Stop 01/15/19 at 19:00; Status DC Bacitracin 55933 unit/Sodium Chloride 1,000 ml @ 1,000 mls/hr 1X ONCE IRR Last administered on 01/15/19at 11:15; Start 01/15/19 at 06:00; Stop 01/15/19 at 06:59; Status DC Cefazolin Sodium/ Dextrose 50 ml @ 100 mls/hr 1X PREOP PRN IV PRIOR TO PROCEDURE Last administered on 01/15/19at 14:21; Start 01/15/19 at 06:00; Stop 01/15/19 at 18:00; Status DC Scopolamine (Transderm-Scop) 1 patch Q3DAYS TD Last administered on 01/15/19at 07:31; Start 01/15/19 at 09:00 Gelatin (Gelfoam Size 100) 1 each STK-MED ONCE .ROUTE Last administered on 01/15/19at 11:15; Start 01/15/19 at 07:08; Stop 01/15/19 at 07:09; Status DC Ketorolac Tromethamine (Toradol Im) 60 mg STK-MED ONCE .ROUTE Last administered on 01/15/19at 11:15; Start 01/15/19 at 07:08; Stop 01/15/19 at 07:09; Status DC Thrombin 20,000 unit STK-MED ONCE TP Last administered on 01/15/19at 11:15; Start 01/15/19 at 07:09; Stop 01/15/19 at 07:09; Status DC Bupivacaine HCl/ Epinephrine Bitart (Sensorcain-Epi 0.5%-1:395725 Mpf) 30 ml 1X ONCE INJ Last administered on 01/15/19at 15:30; Start 01/15/19 at 07:30; Stop 01/15/19 at 07:31; Status DC Albuterol/ Ipratropium (Duoneb) 3 ml 1X ONCE NEB Last administered on 01/15/19at 08:00; Start 01/15/19 at 08:00; Stop 01/15/19 at 08:19; Status DC Rocuronium [place] (Zemuron) 50 mg STK-MED ONCE .ROUTE ; Start 01/15/19 at 08:14; Stop 01/15/19 at 08:14; Status DC Midazolam HCl (Versed) 2 mg STK-MED ONCE .ROUTE ; Start 01/15/19 at 08:14; Stop 01/15/19 at 08:14; Status DC Remifentanil HCl (Ultiva) 2 mg STK-MED ONCE IV ; Start 01/15/19 at 08:14; Stop 01/15/19 at 08:15; Status DC Desflurane (Suprane) 90 ml STK-MED ONCE IH ; Start 01/15/19 at 08:15; Stop 01/15/19 at 08:15; Status DC Propofol 20 ml @ As Directed STK-MED ONCE IV ; Start 01/15/19 at 08:15; Stop 01/15/19 at 08:15; Status DC Propofol 50 ml @ As Directed STK-MED ONCE IV ; Start 01/15/19 at 08:15; Stop 01/15/19 at 08:15; Status DC Lidocaine HCl (Lidocaine Pf 2% Vial) 5 ml STK-MED ONCE .ROUTE ; Start 01/15/19 at 08:15; Stop 01/15/19 at 08:15; Status DC Ondansetron HCl (Zofran) 4 mg STK-MED ONCE .ROUTE ; Start 01/15/19 at 08:15; Stop 01/15/19 at 08:16; Status DC Ketorolac Tromethamine (Toradol 30mg Vial) 30 mg STK-MED ONCE .ROUTE ; Start 01/15/19 at 08:15; Stop 01/15/19 at 08:16; Status DC Phenylephrine HCl (Bj-Synephrine Inj) 10 mg STK-MED ONCE .ROUTE ; Start 01/15/19 at 08:15; Stop 01/15/19 at 08:16; Status DC Dexamethasone Sodium Phosphate (Decadron) 20 mg STK-MED ONCE .ROUTE ; Start 01/15/19 at 08:15; Stop 01/15/19 at 08:16; Status DC Glycopyrrolate (Robinul) 1 mg STK-MED ONCE .ROUTE ; Start 01/15/19 at 08:19; Stop 01/15/19 at 08:19; Status DC Hydrocortisone Sodium Succinate (Solu-CORTEF) 100 mg STK-MED ONCE .ROUTE ; Start 01/15/19 at 08:29; Stop 01/15/19 at 08:30; Status DC Propofol 50 ml @ As Directed STK-MED ONCE IV ; Start 01/15/19 at 10:17; Stop 01/15/19 at 10:17; Status DC Phenylephrine HCl (Bj-Synephrine Inj) 10 mg STK-MED ONCE .ROUTE ; Start 01/15/19 at 10:57; Stop 01/15/19 at 10:57; Status DC Remifentanil HCl (Ultiva) 2 mg STK-MED ONCE IV ; Start 01/15/19 at 11:10; Stop 01/15/19 at 11:11; Status DC Fentanyl Citrate (Fentanyl 2ml Vial) 100 mcg STK-MED ONCE .ROUTE ; Start 01/15/19 at 11:23; Stop 01/15/19 at 11:23; Status DC Propofol 50 ml @ As Directed STK-MED ONCE IV ; Start 01/15/19 at 11:32; Stop 01/15/19 at 11:32; Status DC Aspirin (Ecotrin) 81 mg DAILY PO Last administered on 01/17/19at 08:12; Start 01/16/19 at 09:00 Calcium Polycarbophil (Fibercon) 625 mg DAILY PO Last administered on 01/17/19at 08:12; Start 01/16/19 at 09:00 Furosemide (Lasix) 20 mg DAILY PO Last administered on 01/17/19at 08:12; Start 01/16/19 at 09:00 Albuterol/ Ipratropium (Duoneb) 3 ml RTQID NEB ; Start 01/15/19 at 16:00 Leflunomide (Arava) 20 mg DAILY PO ; Start 01/16/19 at 09:00 Levothyroxine Sodium (Synthroid) 88 mcg DAILY06 PO Last administered on 01/17/19at 06:01; Start 01/16/19 at 06:00 Morphine Sulfate (Ms Contin) 30 mg TID PO Last administered on 01/17/19at 08:12; Start 01/15/19 at 14:00 Polyethylene Glycol (miraLAX PACKET) 17 gm DAILY PO Last administered on 9/18/19at 08:12; Start 01/16/19 at 09:00 Prednisone (Prednisone) 10 mg DAILY PO Last administered on 01/17/19at 08:12; Start 01/16/19 at 09:00 Sumatriptan Succinate (Imitrex) 150 mg PRN 1X PRN PO MIGRAINE HEADACHE Last administered on 01/16/19at 10:02; Start 01/15/19 at 12:00 Tamsulosin HCl (Flomax) 0.4 mg DAILY PO Last administered on 01/17/19at 08:12; Start 01/16/19 at 09:00 Trazodone HCl (Desyrel) 75 mg HS PO Last administered on 01/16/19at 21:04; Start 01/15/19 at 21:00 Diazepam (Valium) 10 mg QHS PO Last administered on 01/16/19at 21:04; Start 01/15/19 at 21:00 Lactobacillus Rhamnosus (Culturelle) 1 cap DAILY PO Last administered on 01/17/19at 08:12; Start 01/16/19 at 09:00 Losartan Potassium (Cozaar) 100 mg DAILY PO Last administered on 01/16/19at 15:11; Start 01/16/19 at 09:00 Metoprolol Succinate (Toprol Xl) 50 mg DAILY PO Last administered on 01/16/19at 12:21; Start 01/16/19 at 09:00 Pantoprazole Sodium (Protonix) 40 mg DAILYAC PO Last administered on 01/17/19at 06:01; Start 01/16/19 at 07:30 Fentanyl Citrate (Fentanyl 2ml Vial) 50 mcg PRN Q2HR PRN IV SEVERE PAIN; Start 01/15/19 at 12:15 Acetaminophen (Tylenol) 650 mg PRN Q6HRS PRN PO MILD PAIN / TEMP; Start 01/15/19 at 12:15 Al Hydroxide/Mg Hydroxide (Mylanta Plus Xs) 30 ml PRN Q3HRS PRN PO HEARTBURN / GAS; Start 01/15/19 at 12:15 Calcium Carbonate/ Glycine (Tums) 500 mg PRN Q3HRS PRN PO INDIGESTION; Start 01/15/19 at 12:15 Diphenhydramine HCl (Benadryl) 25 mg PRN Q6HRS PRN PO ITCHING; Start 01/15/19 at 12:15 Naloxone HCl (Narcan) 0.1 mg PRN Q2MIN PRN IV ADMIN; Start 01/15/19 at 12:15 Sodium Chloride (Normal Saline Flush) 3 ml QSHIFT PRN IV AFTER MEDS AND BLOOD DRAWS; Start 01/15/19 at 12:15 Potassium Chloride/Dextrose/ Sod Cl 1,000 ml @ 75 mls/hr [id number] IV Last administered on 01/15/19at 17:28; Start 01/15/19 at 12:02; Stop 01/17/19 at 03:28; Status DC Naloxone HCl (Narcan) 0.4 mg PRN Q2MIN PRN IV SEE INSTRUCTIONS; Start 01/15/19 at 12:15 Methocarbamol (Robaxin) 750 mg PRN TID PRN PO MUSCLE SPASMS Last administered on 01/17/19at 08:13; Start 01/15/19 at 12:15 Docusate Sodium (Colace) 100 mg BID PO Last administered on 01/17/19at 08:12; Start 01/15/19 at 21:00 Magnesium Hydroxide (Milk Of Magnesia) 2,400 mg PRN Q12HR PRN PO CONSTIPATION; Start 01/15/19 at 12:15 Ondansetron HCl (Zofran) 4 mg PRN Q6HRS PRN IV NAUESA, 1ST CHOICE; Start 01/15/19 at 12:15 Cefazolin Sodium (Ancef) 1 gm Q8H IVP Last administered on 01/16/19at 13:32; Start 01/15/19 at 21:00; Stop 01/16/19 at 13:01; Status DC Acetaminophen/ Hydrocodone Bitart (Lortab 10/325) 1 tab PRN Q6HRS PRN PO MODERATE PAIN Last administered on 01/16/19at 12:21; Start 01/15/19 at 12:15 Acetaminophen/ Hydrocodone Bitart (Lortab 10/325) 2 tab PRN Q6HRS PRN PO SEVERE PAIN; Start 01/15/19 at 12:15 Neostigmine Methylsulfate (Neostigmine Methylsulfate) 5 mg STK-MED ONCE .ROUTE ; Start 01/15/19 at 13:10; Stop 01/15/19 at 13:10; Status DC Cefazolin Sodium (Ancef) 1 gm STK-MED ONCE .ROUTE ; Start 01/15/19 at 13:22; Stop 01/15/19 at 13:23; Status DC Cefazolin Sodium (Ancef) 1 gm STK-MED ONCE .ROUTE ; Start 01/15/19 at 13:22; Stop 01/15/19 at 13:23; Status DC Sodium Chloride (SODIUM CHLORIDE 20ml) 20 ml STK-MED ONCE IJ ; Start 01/15/19 at 13:23; Stop 01/15/19 at 13:23; Status DC Sodium Chloride (SODIUM CHLORIDE 20ml) 20 ml STK-MED ONCE IJ ; Start 01/15/19 at 13:23; Stop 01/15/19 at 13:23; Status DC Remifentanil HCl (Ultiva) 2 mg STK-MED ONCE IV ; Start 01/15/19 at 13:29; Stop 01/15/19 at 13:29; Status DC Phenylephrine HCl (Bj-Synephrine Inj) 10 mg STK-MED ONCE .ROUTE ; Start 01/15/19 at 13:42; Stop 01/15/19 at 13:42; Status DC Propofol 20 ml @ As Directed STK-MED ONCE IV ; Start 01/15/19 at 14:14; Stop 01/15/19 at 14:14; Status DC Propofol 20 ml @ As Directed STK-MED ONCE IV ; Start 01/15/19 at 14:14; Stop 01/15/19 at 14:15; Status DC Desflurane (Suprane) 90 ml STK-MED ONCE IH ; Start 01/15/19 at 15:22; Stop 01/15/19 at 15:22; Status DC Fentanyl Citrate (Fentanyl 2ml Vial) 100 mcg STK-MED ONCE .ROUTE ; Start 01/15/19 at 16:28; Stop 01/15/19 at 16:28; Status DC Guaifenesin (MUCINEX ER with DM) 1 tab BID PO Last administered on 01/17/19at 08:12; Start 01/16/19 at 21:00 Active Scripts Active Reported Ms Contin (Morphine Sulfate) 30 Mg Tablet.er 1 Tab PO TID Probiotic (Lactobacillus Combo No.11) 1 Each Cap.sprink 1 Each PO DAILY Fibercon (Calcium Polycarbophil) 625 Mg Tablet 625 Mg PO DAILY Miralax (Polyethylene Glycol 3350) 17 Gm Powd.pack 1 Packet PO DAILY Aspir-Low (Aspirin) 81 Mg Tablet. 1 Tab PO DAILY Hydrocodone-Apap 7.5-325 (Hydrocodone Bit/Acetaminophen) 1 Tab Tablet 1 Tab PO PRN Q6HRS PRN Lasix (Furosemide) 20 Mg Tablet 1 Tab PO DAILY Imitrex (Sumatriptan Succinate) 100 Mg Tablet 150 Mg PO ONCE PRN NITROGLYCERIN SubLingual (Nitroglycerin) 0.4 Mg Tab.subl 1 Tab SL UD Losartan Potassium 100 Mg Tablet 100 Mg PO DAILY Leflunomide 20 Mg Tablet 20 Mg PO DAILY Duoneb 0.5-3(2.5) Mg/3 Ml (Albuterol/Ipratropium) 3 Ml Ampul.neb 3 Ml NEB QID Toprol Xl (Metoprolol Succinate) 50 Mg Tab.er.24h 50 Mg PO DAILY Synthroid (Levothyroxine Sodium) 88 Mcg Tablet 1 Tab PO DAILY Prednisone (Prednisone) 10 Mg Tablet 10 Mg PO DAILY Trazodone Hcl 50 Mg Tablet 75 Mg PO HS Diazepam 10 Mg Tablet 10 Mg PO HS Flomax (Tamsulosin Hcl) 0.4 Mg Cap.er.24h 1 Cap PO DAILY Protonix (Pantoprazole Sodium) 20 Mg Tablet. 1 Tab PO DAILY Vitals/I & O Vital Sign - Last 24 Hours 01/16/19 01/16/19 01/16/19 01/16/19 11:00 11:00 12:21 12:21 Pulse 81 81 81 Resp 20 20 20 B/P (MAP) 144/81 (102) 144/81 (102) 144/81 O2 Delivery Room Air Room Air Room Air 01/16/19 01/16/19 01/16/19 01/16/19 13:33 15:00 15:11 17:58 Temp 97.8 98.4 97.8 98.4 Pulse 75 75 76 Resp 20 20 B/P (MAP) 137/86 (103) 137/86 117/80 (92) Pulse Ox 96 97 98 O2 Delivery Room Air Room Air Room Air 01/16/19 01/16/19 01/16/19 01/16/19 19:08 19:18 20:00 21:04 Resp 20 18 O2 Delivery Room Air Room Air Room Air Room Air 9/17/01/17/19 01/17/19 01/17/19 22:35 02:30 03:26 05:33 Temp 97.5 97.9 97.6 97.5 97.9 97.6 Pulse 74 75 78 Resp 18 20 18 B/P (MAP) 96/56 (69) 140/86 (104) 97/49 (65) Pulse Ox 96 96 96 O2 Delivery Room Air Venturi Mask Room Air Room Air 01/17/19 01/17/19 07:14 08:13 Pulse 86 Resp 20 B/P (MAP) 99/64 (76) O2 Delivery Room Air Intake and Output 01/16/19 01/16/19 01/17/19 15:00 23:00 07:00 Intake Total 5240 ml 840 ml Balance 5240 ml 840 ml MIKAYLA DUVAL APRN Jan 17, 2019 09:32
[2019-01-17 11:15] VITALS: BP 125/83
[2019-01-17] MEDS ORDERED: BISACODYL 10 MG SUPP.RECT. PR ONE (11:45)
[2019-01-17 13:28] VITALS: BP 125/83
[2019-01-17] MEDS: METOPROLOL SUCC 24HR ER 50 MG TAB.ER.24H. PO SCH (13:28)
--- NOTE | 2019-01-17 13:30 | NUR ---
reviewed written discharge instructions with patient and family. reviewed restrictions to activities of daily living such as bathing, lifting restrictions, medications and driving. no longer wants supp.he had a large BM. instructed and demonstrated dressing change daughter and . dressings supplied. instructed to stop every hour and get out of care every hour on the way home.
--- NOTE | 2019-01-17 14:33 | NUR ---
dismissed to home with personal belongings and walkers x2 . all questions answered
--- NOTE | 2019-01-19 09:07 | PATHOLOGY ---
[facility] Accession Number: [id number] . 01 Material submitted: . vertebral column - LUMBAR DISC AND DECOMPRESSION . 01 Clinical history: . Herniated disc, stenosis, pseudoarthrosis . 02 Diagnosis: "Lumbar disc and decompression", removal: - Portions of unremarkable bone. - Portions of fibrocartilage with degenerative changes. (SKM:pit; 01/18/2019) [facility] 01/18/2019 1436 Local . 02 Electronically signed: . Shaan Dwyer MD, Pathologist NPI- [id number] . 01 Gross description: . The specimen is received in formalin, labeled "Nicolas Jaime, lumbar disc and decompression", are multiple irregular fragments of soria-yellow and gritty tissue possibly admixed with bone measuring 2.5 x 2.5 x 0.8 cm in aggregate. Representatively submitted in A1, after decalcification. ([facility]; 01/16/2019) [facility] 01/18/2019 1435 Local . 02 Pathologist provided ICD-10: M51.26, M99.73 . 02 CPT . 667245, 605154 Specimen Comment: A courtesy copy of this report has been sent to Specimen Comment: [phone]. Specimen Comment: Report sent to Performed at: 01 [facility] [address], [place] [id number] MD Flakito De La Torre MD Phone: [phone] Performed at: 02 [facility] [address] [place], [place] [id number] MD Anthony Abarca MD Phone: [phone]
--- NOTE | 2019-01-19 22:44 | OP ---
DATE OF SURGERY: 01/15/2019 PREOPERATIVE DIAGNOSES: 1. Lumbar spinal stenosis at L2-L3 from a large central disc herniation. 2. Pseudoarthrosis, L3-L4, status post instrumented lumbar fusion L3-L5. OPERATION PERFORMED: Removal of hardware L3 through L5, lumbar laminectomy L2-L3, discectomy L2-L3, placement of hardware L3 through L5 with posterolateral fusion at L3, L4, L5. The operation was done with multimodality monitoring, fluoroscopy, microscopic dissection, BrainLAB guidance. SURGEON: Paulo Leong M.D. CLASSROOM AIDE: KENN Hicks assisted with the surgery. She assisted with the removal of the hardware and decompression. OPERATIVE INDICATIONS: The patient is a pleasant 63-year-old man who developed intractable back and leg pain. He failed conservative measures including physical therapy as well as epidural steroid injections. On imaging studies, he had the above-mentioned findings and I recommended surgery. I spoke with him about the surgery, the risks, technique and expected postoperative course and he wished to go ahead. DESCRIPTION OF PROCEDURE: Following general endotracheal anesthesia, the patient was positioned prone on the Jose Alberto table. Lumbar region prepped and draped in standard fashion. CHERI hose and AV impulse boots were applied for DVT prophylaxis. The microscope was draped. Fluoroscopy was draped and brought into field. Monitoring was established. Ancef 2 grams was given less than 1 hour prior to initiation of surgery. Using fluoroscopic guidance, a midline incision was made, dissected down through skin and subcutaneous tissue, reflected the paraspinal muscles and placed self-retaining retractors. I dissected down and exposed the hardware of L3, L4, and L5. He has had Dynesys systems placed and there was some difficulty in freeing up the plastic cover cords, which would then allow the screws to be backed out. This was accomplished; however. I removed the hardware from both sides and re-tapped, but did not fully place hardware at this point, I was using the NuVasive system. I then moved up to L2-L3 and through the microscope with a high speed air drill, I removed the spinous process, and I thinned the lamina using the high speed air drill, I drilled bilaterally and began to decompress the severe stenosis. I peeled away thickened ligamentum flavum. I performed partial foraminotomies bilaterally and fully decompressed the entire region. I then gently retracted the dura medially. The disc, which had herniated, had largely calcified portions. I was able to remove some of the disc material to help decompress, but by and large much of the disc was calcified and incorporated into the bone. On the right side, I was able to get an excellent decompression peeling away thickened ligamentum flavum, however, on the left side, the residual ligament had densely scarred to the underlying dura, which limited my ability to decompress. I did, however create good dorsal room and fully decompressed the nerve roots. I irrigated copiously and then I placed hardware in L3, L4, L5 and then additionally, the patient clearly had a nonunion at L3-L4 and possible nonunion at L4-L5 and I excoriated the bone and placed posterolateral bone after aspirating 20 mL of bone marrow mixing this with the allograft bone from the decompression. This was packed into the lateral gutters. The rods were placed and nuts applied and the system was torqued sequentially. At this point, then I felt that I had an excellent decompression combined with augmentation of the fusion and replacement of the hardware. I irrigated copiously with antibiotic solution. I removed the retractors and obtained excellent hemostasis. I closed the wound in layers with absorbable suture. The skin was closed with 4-0 subcuticular stitch. The operation went very well. The patient awakened uneventfully, taken to recovery room in excellent condition. I was quite pleased with the surgery. PAULO LEONG MD DR: BRANDI/amelia JOB#: [id number] / [id number] MAGALI
== END 2019-01-17 14:00 | disposition home or self-care (01) | DRG 460 ==
LOC: OPSVCIP 05:47 → 4 SOUTHEST 16:40
PROVIDERS: ADMIT Neurological Surgery; ATTEND Neurological Surgery
PROC: 0SB20ZZ Excision of Lumbar Vertebral Disc, Open Approach (ICD-10-PCS; 2019-01-15)
PROC: 01NB0ZZ Release Lumbar Nerve, Open Approach (ICD-10-PCS; 2019-01-15)
PROC: 0SP00AZ Removal of Interbody Fusion Device from Lumbar Vertebral Joint, Open Approach (ICD-10-PCS; 2019-01-15)
PROC: 4A11X4G Monitoring of Peripheral Nervous Electrical Activity, Intraoperative, External Approach (ICD-10-PCS; 2019-01-15)
PROC: 0SG1071 Fusion of 2 or more Lumbar Vertebral Joints with Autologous Tissue Substitute, Posterior Approach, Posterior Column, Open Approach (ICD-10-PCS; principal; 2019-01-15 08:30)
DX: M96.0 Pseudarthrosis after fusion or arthrodesis (principal); M54.16 Radiculopathy, lumbar region; M48.062 Spinal stenosis, lumbar region with neurogenic claudication; M06.9 Rheumatoid arthritis, unspecified; J45.909 Unspecified asthma, uncomplicated; M10.9 Gout, unspecified; M19.90 Unspecified osteoarthritis, unspecified site; Z82.49 Family history of ischemic heart disease and other diseases of the circulatory system; Z83.3 Family history of diabetes mellitus; Z88.8 Allergy status to other drugs, medicaments and biological substances; Z91.040 Latex allergy status
CPT/HCPCS: 36415; 72131; 76000; 86850; 86900; 86901; 86920; 88304; 88311; A4314; A7015; C1713; J0690; J0696; J1100; J1720; J1885; J2001; J2250; J2270; J2405; J2704; J2710; J3010; J3490; J7030; J7120; J7512; J7620; 97110; 97116; 97530; G0378